=== PATIENT | female | born 1980 | race African-American/Black ===

== ENCOUNTER 2022-02-24 08:42 | Emergency (ER) | payer SELFPAY ==
[~2022-02-24] VITALS: Ht 167.6 cm; Wt 97.5 kg
--- NOTE | 2022-02-24 08:53 | NUR ---
PT BIBRA C/O OF ALLERGIC REACTION UPONE ASSESSMENT NO S/S OF BREATHING DIFFICULTY AIRWAY IS CLEAR SAT IN THE HIGH 90S. NO S/S OF DISTRESS PT ALSO IS COMPLAINING OF SWOLLEN ANKLES.
[2022-02-24] MEDS: diphenhydrAMINE HCL 50 MG/ML VIAL IV ONE (09:10)
[2022-02-24] MEDS: FAMOTIDINE/PF INJ 20 MG/2 ML VIAL IV ONE (09:10)
[2022-02-24] MEDS: methylPREDNISolone SOD SUCC 125 MG/2ML VIAL IV ONE (09:11)
[2022-02-24 09:14] VITALS: BP 144/99
== END 2022-02-24 09:17 | disposition home or self-care (01) ==
LOC: ER 08:45
DX: T78.40XA Allergy, unspecified, initial encounter (principal); I11.0 Hypertensive heart disease with heart failure; I50.9 Heart failure, unspecified; Z91.013 Allergy to seafood; Z60.2 Problems related to living alone; X58.XXXA Exposure to other specified factors, initial encounter